=== PATIENT | female | born 2000 | race Caucasian/White ===

== ENCOUNTER 2021-02-01 16:25 | Emergency (ER) | payer OTHER ==
[~2021-02-01] VITALS: Ht 170.2 cm; Wt 86.2 kg
[2021-02-01 16:37] VITALS: BP 148/89
--- NOTE | 2021-02-01 16:42 | NUR ---
PATIENT SENT TO LOBBY
[2021-02-01] MEDS ORDERED: ONDANSETRON 4 MG ODT PO ONE (17:30)
[2021-02-01] MEDS ORDERED: LOPE1TAB14 PO (17:30)
--- NOTE | 2021-02-01 18:07 | NUR ---
PT AMBULATED TO CHAIR C
--- NOTE | 2021-02-01 18:09 | NUR ---
20/F BIB SELF WITH C/O ABDOMINAL PAIN AND DIARRHEA X2 DAYS. STATES INTERMITTENT EPISODES OF NAUSEA, DENIES VOMITING, CP, SOB. PT STATES 8/10 CRAMPING PAIN. ABD SOFT NON TENDER MEDHX: HYPOTHYROIDISM ALLERGIES: DENIES
[2021-02-01 18:38] VITALS: BP 135/90
--- NOTE | 2021-02-01 18:38 | NUR ---
Patient discharged with v/s stable. Written and verbal after care instructions given and explained. Patient alert, oriented and verbalized understanding of instructions. Ambulatory with steady gait. All questions addressed prior to discharge. ID band removed. Patient advised to follow up with PMD. Opportunity to ask questions provided and answered.
== END 2021-02-01 18:38 | disposition home or self-care (01) ==
LOC: MED 16:25
DX: R19.7 Diarrhea, unspecified (principal); R11.0 Nausea
CPT/HCPCS: 99283; Q0162